=== PATIENT | female | born 1995 | race Hispanic/Latino ===

== ENCOUNTER 2017-12-14 06:11 | Day surgery (SDC) | payer OTHER ==
[2017-12-12 09:16] VITALS: BMI 24.7
[2017-12-14 07:14] LABS: HEMOGLOBIN 13.7 g/dL (12.0-16.0); MEAN CELL VOLUME 84.4 fl (81.0-99.0); MEAN CORPUSCULAR HEMOGLOBIN 28.2 pg (27.0-31.0); MEAN CORPUSCULAR HGB CONC 33.4 g/dL (33.0-37.0); RBC 4.84 Mil/uL (3.80-5.20); RED CELL DISTRIBUTION WIDTH 14.1 % (11.5-14.5); WHITE BLOOD COUNT 5.6 K/uL (4.8-10.8)
[2017-12-14] MEDS ORDERED: Propofol 10 mg/ml Inj (20 ML) ONE (07:43)
[2017-12-14] MEDS ORDERED: Midazolam 2 MG/2 ML VIAL ONE (07:43)
[2017-12-14] MEDS ORDERED: Succinylcholine 200 mg/10 ml Inj IV ONE (07:44)
[2017-12-14] MEDS ORDERED: Lactated Ringer's 1,000 ML IV ONE (07:45)
[2017-12-14] MEDS ORDERED: Ferric Subsulfate Sol(60 mL) ONE (08:04)
[2017-12-14] MEDS ORDERED: HYDROmorphone 0.5 mg/0.5 ml ISec IVP PRN (08:14)
[2017-12-14] MEDS ORDERED: Lactated Ringer's 1,000 ML IV SCH (08:15)
--- NOTE | 2017-12-14 08:52 | HP ---
HISTORY OF PRESENT ILLNESS: This is a 22-year-old G0 with last menstrual period on 11/07/2017 who is having a lot of breakthrough bleeding on several different pills, currently on Cryselle, desires to try LILETTA for contraception. She cannot tolerate LILETTA to be placed in the office, so the patient is here for LILETTA to be placed in the operating room under deep sedation. She reports that she placed misoprostol in her vagina last night as she was instructed. PAST MEDICAL HISTORY: IBS/spastic colon, bipolar disorder, right knee tendonitis, and endometriosis. The patient reports that she was kept in the hospital for few days after for ABO incompatibility in 06/1995. MEDICATIONS: Cryselle, Xanax, and pt reports that she started Latuda yesterday. PAST SURGICAL HISTORY: She had a laparoscopic appendectomy in 10/2010. FAMILY HISTORY: Mother alive 48 years old breast cancer. Maternal grandfather alive with prostate cancer, and diagnosed with diabetes. Maternal grandmother alive with skin cancer. Maternal great grandmother with stomach cancer. SOCIAL HISTORY: The patient lives with her family. She denies smoking. She reports she drinks 1-2 drinks monthly or less. She denies illicit drug use. SHIRT MARKER HISTORY: She gets her periods every month. She denies any STDs. As above, the patient is having a lot of breakthrough bleeding with different pills that she has tried. ALLERGIES: BEES, NAPROXEN, AND PENICILLIN. PHYSICAL EXAMINATION: VITAL SIGNS: Afebrile. Vital signs are stable. GENERAL: The patient appears comfortable, lying in bed. ABDOMEN: Soft and nontender. ASSESSMENT AND PLAN: This is a 22-year-old G0 admitted to the hospital for LILETTA placement to be done in the operating room under deep sedation. Jailyn Lopez MD KODI
--- NOTE | 2017-12-14 09:12 | OP ---
PROCEDURE DATE: 12/14/2017 PREOPERATIVE DIAGNOSIS: This is a 22-year-old G0 who desires Liletta placement and cannot tolerate LILETTA to be placed in the office. POSTOPERATIVE DIAGNOSIS: This is a 22-year-old G0 who desires Liletta placement and cannot tolerate the Liletta to be placed in the office. PROCEDURE: Liletta insertion under deep sedation. SURGEON: Jailyn Lopez MD ANESTHESIOLOGIST: Keyanna Reddy MD TYPE OF ANESTHESIA: Deep sedation. FINDINGS: An anteverted uterus sounded about 7 cm. DESCRIPTION OF PROCEDURE: The patient was taken to the operating room with IV running and placed under deep sedation. She was prepped and draped in the usual sterile fashion in the dorsal lithotomy position. A weighted speculum was placed in the posterior fornix of the vagina and a Daniel speculum was placed in the anterior wall of the vagina. A single-tooth tenaculum was placed at the anterior lip of the cervix. The cervix was then gently dilated to accommodate the Liletta applicator. The uterus was sounded to 7 cm. The IUD was then inserted without difficulty and the strings were cut. The tenaculum was removed from the cervix. Manual pressure, using a sponge on a Ring forceps, was applied to the tenaculum sites for hemostasis. AstrinGyn was then applied to the tenaculum sites for further hemostasis. All instruments were then removed from the vagina. All counts were correct. The patient tolerated the procedure well and was taken to the recovery room in stable condition. Jailyn Lopez MD [email or web address]
[2017-12-14 11:09] VITALS: RESP 18
[2017-12-14] MEDS ORDERED: Oxycodone/Acetaminophen 5/325 mg Tab PO ONE ×2 (13:02→15:00)
[2017-12-14 14:22] VITALS: BP 132/81; PULSE 70; TEMP 98.3; O2SAT 98
== END 2017-12-14 15:30 | disposition home or self-care (01) ==
LOC: H.OPSURG 06:11
PROVIDERS: ATTEND Obstetrics & Gynecology
DX: N92.1 Excessive and frequent menstruation with irregular cycle (principal); N80.1 Endometriosis of ovary; N88.2 Stricture and stenosis of cervix uteri; F31.9 Bipolar disorder, unspecified; M13.869 Other specified arthritis, unspecified knee
CPT/HCPCS: 36415; 58300; 85027; 86850; 86900; J1170; J2001; J2250; J2405; J3010; J7120